=== PATIENT | female | born 1970 | race Caucasian/White ===

== ENCOUNTER → 2017-08-22 | Outpatient (CLI) | payer OTHER, SELFPAY ==
[~2017-08-22] MED LIST: ACET500C PO; ADVAIR INH; LEVO125T PO; MOTR200T4 PO
[2017-08-22 10:29] LABS: ANION GAP 7 MEQ/L (8-16); BLOOD UREA NITROGEN 11 MG/DL (7-18); CALCIUM LEVEL 8.8 MG/DL (8.5-10.1); CARBON DIOXIDE LEVEL 27 MEQ/L (21-32); CHLORIDE LEVEL 105 MEQ/L (98-107); CHOLESTEROL LEVEL 205 MG/DL (<200); FREE T4 1.11 NG/DL (0.76-1.46); GLOMERULAR FILTRATION RATE > 60.0 (>58); GLUCOSE, FASTING 93 MG/DL (70-105); POTASSIUM SERUM 3.7 MEQ/L (3.5-5.1); SODIUM LEVEL 139 MEQ/L (136-145); TRIGLYCERIDES LEVEL 130 MG/DL (<150)
== END ==
LOC: M LABDRAW1 09:08
PROVIDERS: ATTEND Physician Assistant Medical
DX: E03.9 Hypothyroidism, unspecified (principal); E78.5 Hyperlipidemia, unspecified; Z00.00 Encounter for general adult medical examination without abnormal findings

== ENCOUNTER → 2017-10-02 | Outpatient (REF) | payer OTHER | LOC: M LAB REF 12:21 | DX: J02.9 Acute pharyngitis, unspecified (principal) | CPT/HCPCS: 87081 ==

== ENCOUNTER 2018-04-26 17:41 | Emergency (ER) | payer OTHER ==
[2018-04-26] MEDS: RABIES VACCINE HUMAN 2.5 INTERNATIONAL UNITS/ML VIAL (90675) IM (18:15)
[2018-04-26] MEDS: RABIES IMMUNE GLOBULIN 1500 INTERNATIONAL UNITS/10 ML VIAL (90375) IM (19:21)
== END 2018-04-26 20:06 | disposition home or self-care (01) ==
LOC: M ED 17:41
DX: Z20.3 Contact with and (suspected) exposure to rabies (principal); I49.3 Ventricular premature depolarization; E07.9 Disorder of thyroid, unspecified; Z87.19 Personal history of other diseases of the digestive system; Z88.2 Allergy status to sulfonamides; Z88.8 Allergy status to other drugs, medicaments and biological substances; Z79.899 Other long term (current) drug therapy
CPT/HCPCS: 90675

== ENCOUNTER 2018-04-29 11:24 | Emergency (ER) | payer BC, OTHER ==
[2018-04-29] MEDS: RABIES VACCINE HUMAN 2.5 INTERNATIONAL UNITS/ML VIAL (90675) IM (12:09)
== END 2018-04-29 12:18 | disposition home or self-care (01) ==
LOC: M ED 11:24
DX: Z20.3 Contact with and (suspected) exposure to rabies (principal); Z23 Encounter for immunization; Z79.890 Hormone replacement therapy; Z88.1 Allergy status to other antibiotic agents; Z88.2 Allergy status to sulfonamides; Z88.8 Allergy status to other drugs, medicaments and biological substances
CPT/HCPCS: 90675

== ENCOUNTER 2018-05-03 17:12 | Emergency (ER) | payer OTHER, BC ==
[2018-05-03] MEDS: RABIES VACCINE HUMAN 2.5 INTERNATIONAL UNITS/ML VIAL (90675) IM (17:38)
== END 2018-05-03 18:01 | disposition home or self-care (01) ==
LOC: M ED 17:12
DX: Z20.3 Contact with and (suspected) exposure to rabies (principal); Z23 Encounter for immunization; G43.909 Migraine, unspecified, not intractable, without status migrainosus; E07.9 Disorder of thyroid, unspecified; Z86.79 Personal history of other diseases of the circulatory system; Z79.899 Other long term (current) drug therapy; Z88.8 Allergy status to other drugs, medicaments and biological substances; Z88.2 Allergy status to sulfonamides
CPT/HCPCS: 90675

== ENCOUNTER 2018-05-10 16:11 | Emergency (ER) | payer BC, OTHER ==
[2018-05-10] MEDS: RABIES VACCINE HUMAN 2.5 INTERNATIONAL UNITS/ML VIAL (90675) IM (16:45)
== END 2018-05-10 17:12 | disposition home or self-care (01) ==
LOC: M ED 16:11
DX: Z20.3 Contact with and (suspected) exposure to rabies (principal); Z23 Encounter for immunization
CPT/HCPCS: 90675

== ENCOUNTER 2019-10-26 07:09 | Emergency (ER) | payer BC, OTHER ==
[~2019-10-26] VITALS: Ht 157.5 cm; Wt 73.7 kg
[~2019-10-26 07:09] MED LIST changes: +METO1TAB87
[2019-10-26] MEDS ORDERED: cefTRIAXone SOD 250 MG VIAL (J0696) IM ONE (07:45)
[2019-10-26] MEDS ORDERED: LIDOCAINE 1% SDV 5 ML VIAL DILUENT ONE (07:45)
[2019-10-26] MEDS ORDERED: AZITHROMYCIN 250 MG TAB PO ONE (07:45)
[2019-10-26] MEDS ORDERED: ZOFR4TAB16 PO (08:58)
[2019-10-26] MEDS ORDERED: ONDANSETRON 4 MG ORAL DISINTEGRATING TAB (Q0162 PER 1MG) As Ordered ONE (08:58)
[2019-10-26] MEDS ORDERED: ONDANSETRON 4 MG TAB (S0181) PO ONE (09:00)
--- NOTE | 2019-10-26 09:20 | REP ---
LEFT KNEE, COMPLETE: 10/26/2019. Clinical history: Trauma, patient fell. Cannot extend her knee. Findings: No prior study. Five views show medial and lateral compartments without joint space narrowing, loose body or osteochondral lesion. No spurs at joint margins. Patellofemoral joint shows no joint space narrowing or subluxation of the patella. However, there is a suprapatellar effusion on the lateral view. No visible fracture, avulsion, loose body or osteochondral lesion. Impression: 1. Suprapatellar joint effusion, otherwise negative left knee series for any acute bony finding. Electronically Signed by Kvng Herman MD 10/26/2019 08:17 P
[2019-10-26 09:26] VITALS: BP 117/71
[2019-10-26 09:52] LABS: CHLAMYDIA DNA AMPLIFICATION NEGATIVE (NEGATIVE); GC DNA AMPLIFICATION NEGATIVE (NEGATIVE)
[2019-10-27 11:23] LABS: HEPATITIS B SURFACE ANTIBODY POSITIVE (POSITIVE); HEPATITIS B SURFACE ANTIGEN NEGATIVE (NEGATIVE); HEPATITIS C VIRUS ABY INDEX < 0.0 INDEX (<0.8); HIV 1&2 SCREEN CENTAUR NEGATIVE (NEGATIVE)
== END 2019-10-26 09:32 | disposition home or self-care (01) ==
LOC: M ED 07:09
DX: Z11.3 Encounter for screening for infections with a predominantly sexual mode of transmission (principal); S89.92XA Unspecified injury of left lower leg, initial encounter; W00.0XXA Fall on same level due to ice and snow, initial encounter; Y93.23 Activity, snow (alpine) (downhill) skiing, snowboarding, sledding, tobogganing and snow tubing; M25.462 Effusion, left knee; E03.9 Hypothyroidism, unspecified; Z86.79 Personal history of other diseases of the circulatory system; Z91.048 Other nonmedicinal substance allergy status; Z88.2 Allergy status to sulfonamides; Z79.890 Hormone replacement therapy; Z79.899 Other long term (current) drug therapy
CPT/HCPCS: 73564; 86706; 86780; 86803; 87210; 87340; 87389; 87661; 96372; 99284; J0696

== ENCOUNTER → 2019-11-19 | Outpatient (REF) | payer OTHER ==
[~2019-11-19] MED LIST changes: +ZOFR4TAB16 PO
[2019-11-19 10:41] LABS: BASO % 0.6 % (0.0-1.0); EOS # 0.1 10^3/uL (0.0-0.5); EOS % 2.3 % (0.0-3.0); HEMATOCRIT 40.1 % (36.0-47.0); HEMOGLOBIN 13.8 g/dl (12.0-15.5); LYMPH # 1.9 10^3/uL (1.5-5.0); LYMPH % 39.5 % (24.0-44.0); MEAN CORPUSCULAR HEMOGLOBIN 32.5 pg (27.0-33.0); MEAN CORPUSCULAR HGB CONC 34.4 g/dl (32.0-36.5); MEAN CORPUSCULAR VOLUME 94.4 fl (80.0-96.0); MONO # 0.4 10^3/uL (0.0-0.8); MONO % 7.6 % (0.0-5.0); NEUTROPHILS # 2.4 10^3/uL (1.5-8.5); NEUTROPHILS % 49.4 % (36.0-66.0); PLATELET COUNT, AUTOMATED 299 10^3/uL (150-450); RED BLOOD COUNT 4.25 10^6/uL (4.00-5.40); WHITE BLOOD COUNT 4.8 10^3/uL (4.0-10.0)
[2019-11-19 10:55] LABS: ALT/SGPT 19 U/L (12-78); BILIRUBIN,TOTAL 0.4 MG/DL (0.2-1.0); BLOOD UREA NITROGEN 14 MG/DL (7-18); CARBON DIOXIDE LEVEL 30 MEQ/L (21-32); CHLORIDE LEVEL 107 MEQ/L (98-107); CHOLESTEROL LEVEL 241 MG/DL (<200); CHOLESTEROL RISK RATIO 4.381 (<5); CREATININE FOR GFR 0.81 MG/DL (0.55-1.30); FREE T4 1.05 NG/DL (0.76-1.46); GLOMERULAR FILTRATION RATE > 60.0 (>58); GLUCOSE, FASTING 91 MG/DL (70-100); HDL CHOLESTEROL 55 MG/DL (>40); LDL CHOLESTEROL 161 MG/DL (<100); NON-HDL-C 186 MG/DL; POTASSIUM SERUM 4.5 MEQ/L (3.5-5.1); SODIUM LEVEL 142 MEQ/L (136-145); TOTAL PROTEIN 7.1 GM/DL (6.4-8.2); TRIGLYCERIDES LEVEL 126 MG/DL (<150)
== END ==
LOC: M LABDRAW1 09:48
PROVIDERS: ATTEND Physician Assistant
DX: Z13.220 Encounter for screening for lipoid disorders (principal); K21.9 Gastro-esophageal reflux disease without esophagitis; E03.9 Hypothyroidism, unspecified

== ENCOUNTER → 2020-06-24 | Outpatient (REF) | payer OTHER ==
[2020-06-24 13:16] LABS: ALBUMIN 4.1 GM/DL (3.2-5.2); BILIRUBIN,DIRECT 0.1 MG/DL (0.0-0.2); BILIRUBIN,TOTAL 0.6 MG/DL (0.2-1.0); FREE T4 0.94 NG/DL (0.76-1.46); THYROID STIMULATING HORMONE 2.05 uIU/ML (0.358-3.740); TOTAL PROTEIN 7.3 GM/DL (6.4-8.2)
== END ==
LOC: M LABDRWAD 12:13
PROVIDERS: ATTEND Physician Assistant
DX: E03.9 Hypothyroidism, unspecified (principal); E78.2 Mixed hyperlipidemia

== ENCOUNTER → 2020-08-10 | Outpatient (REF) | payer OTHER ==
[2020-08-10 13:08] LABS: ALT/SGPT 21 U/L (12-78); BILIRUBIN,TOTAL 0.4 MG/DL (0.2-1.0); BLOOD UREA NITROGEN 16 MG/DL (7-18); CALCIUM LEVEL 9.1 MG/DL (8.5-10.1); CARBON DIOXIDE LEVEL 27 MEQ/L (21-32); CHLORIDE LEVEL 106 MEQ/L (98-107); CHOLESTEROL LEVEL 179 MG/DL (<200); CHOLESTEROL RISK RATIO 3.086 (<5); CREATININE FOR GFR 0.71 MG/DL (0.55-1.30); GLOMERULAR FILTRATION RATE > 60.0 (>58); GLUCOSE, FASTING 89 MG/DL (70-100); HDL CHOLESTEROL 58 MG/DL (>40); LDL CHOLESTEROL 99 MG/DL (<100); NON-HDL-C 121 MG/DL; POTASSIUM SERUM 4.5 MEQ/L (3.5-5.1); SODIUM LEVEL 140 MEQ/L (136-145); TOTAL PROTEIN 7.4 GM/DL (6.4-8.2); TRIGLYCERIDES LEVEL 110 MG/DL (<150)
== END ==
LOC: M LABDRWAD 12:07
PROVIDERS: ATTEND Physician Assistant
DX: E78.2 Mixed hyperlipidemia (principal)

== ENCOUNTER → 2020-12-23 | Outpatient (REF) | payer OTHER | LOC: M LAB REF 16:35 | PROVIDERS: ATTEND Family Medicine | DX: G43.009 Migraine without aura, not intractable, without status migrainosus (principal) ==

== ENCOUNTER → 2021-02-02 | Outpatient (REF) | payer OTHER ==
[2021-02-02 12:39] LABS: BASO % 0.8 % (0.0-1.0); EOS # 0.1 10^3/uL (0.0-0.5); HEMATOCRIT 40.7 % (36.0-47.0); LYMPH % 41.8 % (24.0-44.0); MEAN CORPUSCULAR HEMOGLOBIN 31.9 pg (27.0-33.0); MEAN CORPUSCULAR HGB CONC 34.4 g/dl (32.0-36.5); MEAN CORPUSCULAR VOLUME 92.7 fl (80.0-96.0); MONO # 0.5 10^3/uL (0.0-0.8); MONO % 9.6 % (2.0-8.0); NEUTROPHILS # 2.2 10^3/uL (1.5-8.5); NEUTROPHILS % 45.6 % (36.0-66.0); PLATELET COUNT, AUTOMATED 268 10^3/uL (150-450); RED BLOOD COUNT 4.39 10^6/uL (4.00-5.40); WHITE BLOOD COUNT 4.9 10^3/uL (4.0-10.0)
[2021-02-02 13:18] LABS: ALT/SGPT 24 U/L (12-78); BILIRUBIN,TOTAL 0.4 MG/DL (0.2-1.0); BLOOD UREA NITROGEN 17 MG/DL (7-18); CALCIUM LEVEL 9.3 MG/DL (8.5-10.1); CARBON DIOXIDE LEVEL 28 MEQ/L (21-32); CHLORIDE LEVEL 108 MEQ/L (98-107); CHOLESTEROL LEVEL 203 MG/DL (<200); FREE T4 0.97 NG/DL (0.76-1.46); GLOMERULAR FILTRATION RATE > 60.0 (>58); GLUCOSE, FASTING 89 MG/DL (70-100); HDL CHOLESTEROL 59 MG/DL (>40); LDL CHOLESTEROL 119 MG/DL (<100); NON-HDL-C 144 MG/DL; POTASSIUM SERUM 4.5 MEQ/L (3.5-5.1); SODIUM LEVEL 141 MEQ/L (136-145); TOTAL 25(OH) VITAMIN D 79.8 NG/ML (30.0-100.0); TOTAL PROTEIN 7.2 GM/DL (6.4-8.2); TRIGLYCERIDES LEVEL 123 MG/DL (<150)
== END ==
LOC: M LABDRWAD 12:20
PROVIDERS: ATTEND Physician Assistant
DX: E78.2 Mixed hyperlipidemia (principal); K21.9 Gastro-esophageal reflux disease without esophagitis; M54.5 Low back pain; R53.83 Other fatigue

== ENCOUNTER → 2021-02-14 | Outpatient (CLI) | payer BC, OTHER ==
--- NOTE | 2021-02-14 16:40 | REP ---
INDICATION: LOW BACK PAIN COMPARISON: 12/25/2017 TECHNIQUE: AP, lateral, flexion/extension, bilateral oblique, and coned-down views. FINDINGS: Mild stable chronic levoconvex scoliosis centered at approximately L1-2 again noted in the frontal projection. The vertebral bodies including transverse process and spinous processes are intact and normal. There is no evidence for acute fracture / compression injury or subluxation. No evidence for spondylolysis or spondylolisthesis. No significant degenerative change is noted. IMPRESSION: Mild stable chronic levoconvex scoliosis <Electronically signed by Gene Benítez > 02/14/21 1349
== END ==
LOC: M ADAMS 15:56
PROVIDERS: ATTEND Family Medicine
DX: M54.5 Low back pain (principal)

== ENCOUNTER → 2021-06-24 | Outpatient (REF) | payer BC ==
[2021-06-24 12:36] LABS: ALBUMIN 3.8 GM/DL (3.2-5.2); ALT/SGPT 25 U/L (12-78); BILIRUBIN,TOTAL 0.4 MG/DL (0.2-1.0); BLOOD UREA NITROGEN 14 MG/DL (7-18); CALCIUM LEVEL 9.2 MG/DL (8.5-10.1); CARBON DIOXIDE LEVEL 26 MEQ/L (21-32); CHLORIDE LEVEL 110 MEQ/L (98-107); CHOLESTEROL LEVEL 174 MG/DL (<200); CREATININE FOR GFR 0.76 MG/DL (0.55-1.30); GLOMERULAR FILTRATION RATE > 60.0 (>58); GLUCOSE, FASTING 91 MG/DL (70-100); HDL CHOLESTEROL 60 MG/DL (>40); LDL CHOLESTEROL 100 MG/DL (<100); NON-HDL-C 114 MG/DL; POTASSIUM SERUM 4.6 MEQ/L (3.5-5.1); SODIUM LEVEL 143 MEQ/L (136-145); TOTAL PROTEIN 7.2 GM/DL (6.4-8.2); TRIGLYCERIDES LEVEL 72 MG/DL (<150)
== END ==
LOC: M LABDRWAD 11:27
PROVIDERS: ATTEND Physician Assistant
DX: E78.2 Mixed hyperlipidemia (principal)

== ENCOUNTER → 2022-02-17 | Outpatient (REF) | payer OTHER, BC | LOC: M LAB REF 10:04 | PROVIDERS: ATTEND Physician Assistant | DX: R19.7 Diarrhea, unspecified (principal) ==

== ENCOUNTER → 2022-02-20 | Outpatient (CLI) | payer BC, OTHER ==
[2022-02-20 17:46] LABS: HEMOGLOBIN 13.6 g/dl (12.0-15.5); MEAN CORPUSCULAR HEMOGLOBIN 31.7 pg (27.0-33.0); MEAN CORPUSCULAR HGB CONC 34.9 g/dl (32.0-36.5); MEAN CORPUSCULAR VOLUME 90.9 fl (80.0-96.0); PLATELET COUNT, AUTOMATED 260 10^3/uL (150-450); RED BLOOD COUNT 4.29 10^6/uL (4.00-5.40); WHITE BLOOD COUNT 7.1 10^3/uL (4.0-10.0)
[2022-02-20 18:20] LABS: ALBUMIN 3.9 GM/DL (3.2-5.2); ALT/SGPT 20 U/L (12-78); BILIRUBIN,DIRECT 0.1 MG/DL (0.0-0.2); BILIRUBIN,TOTAL 0.5 MG/DL (0.2-1.0); BLOOD UREA NITROGEN 13 MG/DL (7-18); CALCIUM LEVEL 9.5 MG/DL (8.5-10.1); CARBON DIOXIDE LEVEL 29 MEQ/L (21-32); CHLORIDE LEVEL 110 MEQ/L (98-107); CREATININE FOR GFR 0.71 MG/DL (0.55-1.30); FREE T4 1.01 NG/DL (0.76-1.46); GLOMERULAR FILTRATION RATE > 60.0 (>51); GLUCOSE, FASTING 83 MG/DL (70-100); LIPASE 240 U/L (73-393); POTASSIUM SERUM 4.4 MEQ/L (3.5-5.1); SODIUM LEVEL 143 MEQ/L (136-145); TOTAL PROTEIN 7.4 GM/DL (6.4-8.2)
[2022-02-20 19:28] LABS: ATYPICAL LYMPH 8 % (0-5); EOSINOPHILS 2 % (0-3); LYMPHOCYTES 26 % (16-44); MONOCYTES 4 % (0-5); NEUTROPHILS 58 % (28-66); PLATELET ESTIMATE NORMAL (NORMAL)
== END ==
LOC: M PLALAB 15:51
PROVIDERS: ATTEND Physician Assistant
DX: R19.7 Diarrhea, unspecified (principal)

== ENCOUNTER → 2022-03-07 | Outpatient (CLI) | payer BC, OTHER ==
[2022-03-07 13:23] LABS: BASO % 0.7 % (0.0-1.0); EOS # 0.1 10^3/uL (0.0-0.5); EOS % 2.3 % (0.0-3.0); HEMOGLOBIN 13.7 g/dl (12.0-15.5); LYMPH % 35.1 % (24.0-44.0); MEAN CORPUSCULAR HGB CONC 33.4 g/dl (32.0-36.5); MEAN CORPUSCULAR VOLUME 92.8 fl (80.0-96.0); MONO # 0.5 10^3/uL (0.0-0.8); MONO % 8.7 % (2.0-8.0); NEUTROPHILS # 3.1 10^3/uL (1.5-8.5); PLATELET COUNT, AUTOMATED 322 10^3/uL (150-450); RED BLOOD COUNT 4.42 10^6/uL (4.00-5.40); WHITE BLOOD COUNT 5.8 10^3/uL (4.0-10.0)
== END ==
LOC: M PLALAB 08:56
PROVIDERS: ATTEND Physician Assistant
DX: D72.89 Other specified disorders of white blood cells (principal)

== ENCOUNTER → 2022-05-26 | Outpatient (CLI) | payer BC, OTHER ==
[2022-05-26 16:04] LABS: BASO % 0.5 % (0.0-1.0); EOS # 0.1 10^3/uL (0.0-0.5); EOS % 1.3 % (0.0-3.0); HEMATOCRIT 39.5 % (36.0-47.0); HEMOGLOBIN 13.4 g/dl (12.0-15.5); LYMPH # 2.3 10^3/uL (1.5-5.0); LYMPH % 37.1 % (24.0-44.0); MEAN CORPUSCULAR HEMOGLOBIN 31.7 pg (27.0-33.0); MEAN CORPUSCULAR HGB CONC 33.9 g/dl (32.0-36.5); MEAN CORPUSCULAR VOLUME 93.4 fl (80.0-96.0); MONO # 0.5 10^3/uL (0.0-0.8); MONO % 8.1 % (2.0-8.0); NEUTROPHILS # 3.3 10^3/uL (1.5-8.5); NEUTROPHILS % 52.7 % (36.0-66.0); PLATELET COUNT, AUTOMATED 282 10^3/uL (150-450); RED BLOOD COUNT 4.23 10^6/uL (4.00-5.40); WHITE BLOOD COUNT 6.3 10^3/uL (4.0-10.0)
[2022-05-26 16:30] LABS: ALBUMIN 3.8 GM/DL (3.2-5.2); ALT/SGPT 26 U/L (12-78); BILIRUBIN,TOTAL 0.3 MG/DL (0.2-1.0); BLOOD UREA NITROGEN 13 MG/DL (7-18); CALCIUM LEVEL 9.3 MG/DL (8.5-10.1); CARBON DIOXIDE LEVEL 27 MEQ/L (21-32); CHLORIDE LEVEL 107 MEQ/L (98-107); CREATININE FOR GFR 0.68 MG/DL (0.55-1.30); FREE T4 0.98 NG/DL (0.76-1.46); GLOMERULAR FILTRATION RATE > 60.0 (>51); GLUCOSE, FASTING 90 MG/DL (70-100); POTASSIUM SERUM 4.3 MEQ/L (3.5-5.1); SODIUM LEVEL 138 MEQ/L (136-145); THYROID STIMULATING HORMONE 0.349 uIU/ML (0.358-3.740); TOTAL PROTEIN 6.9 GM/DL (6.4-8.2)
== END ==
LOC: M PLALAB 12:40
PROVIDERS: ATTEND Physician Assistant
DX: E03.9 Hypothyroidism, unspecified (principal)

== ENCOUNTER → 2022-07-21 | Outpatient (CLI) | payer BC, OTHER ==
[2022-07-21 13:06] LABS: BASO # 0.1 10^3/uL (0.0-0.2); BASO % 0.8 % (0.0-1.0); EOS # 0.1 10^3/uL (0.0-0.5); EOS % 1.4 % (0.0-3.0); HEMATOCRIT 41.6 % (36.0-47.0); HEMOGLOBIN 13.6 g/dl (12.0-15.5); LYMPH # 2.3 10^3/uL (1.5-5.0); LYMPH % 34.9 % (24.0-44.0); MEAN CORPUSCULAR HGB CONC 32.7 g/dl (32.0-36.5); MEAN CORPUSCULAR VOLUME 94.8 fl (80.0-96.0); MONO # 0.6 10^3/uL (0.0-0.8); MONO % 9.6 % (2.0-8.0); NEUTROPHILS # 3.5 10^3/uL (1.5-8.5); NEUTROPHILS % 52.8 % (36.0-66.0); PLATELET COUNT, AUTOMATED 287 10^3/uL (150-450); RED BLOOD COUNT 4.39 10^6/uL (4.00-5.40); WHITE BLOOD COUNT 6.6 10^3/uL (4.0-10.0)
[2022-07-21 14:08] LABS: FREE T3 2.6 PG/ML (2.2-4.0); FREE T4 1.02 NG/DL (0.76-1.46); THYROID STIMULATING HORMONE 0.605 uIU/ML (0.358-3.740)
[2022-07-21 14:41] LABS: ESTRADIOL 85.9 PG/ML; LUTEINIZING HORMONE 4.2 mIU/mL; PROGESTERONE 14.37 NG/ML
[2022-07-21 14:43] LABS: FOLLICLE STIMULATING HORMONE 7.6 mIU/mL
[2022-07-22 23:09] LABS: TESTOSTERONE FREE (DIRECT) 0.5 pg/mL (0.0-4.2)
== END ==
LOC: M WUC 09:12
PROVIDERS: ATTEND Student in an Organized Health Care Education/Training Program
DX: R89.1 Abnormal level of hormones in specimens from other organs, systems and tissues (principal); N95.1 Menopausal and female climacteric states; E34.9 Endocrine disorder, unspecified; E07.89 Other specified disorders of thyroid

== ENCOUNTER → 2022-07-27 | Outpatient (CLI) | payer BC, OTHER ==
[2022-07-28 17:08] LABS: HERPES ZOSTER, VARICELLA IgG 406 index (Immune >165); HERPES ZOSTER, VARICELLA IgM <0.91 index (0.00-0.90); RUBEOLA IgG ANTIBODY 38.7 AU/mL (Immune >16.4)
== END ==
LOC: M PLALAB 08:39
PROVIDERS: ATTEND Physician Assistant
DX: Z01.84 Encounter for antibody response examination (principal)

== ENCOUNTER → 2023-11-22 | Outpatient (CLI) | payer OTHER ==
[2023-11-22 11:07] LABS: BASO # 0.1 10^3/uL (0.0-0.2); BASO % 0.8 % (0.0-1.0); EOS # 0.1 10^3/uL (0.0-0.5); EOS % 2.2 % (0.0-3.0); HEMATOCRIT 41.5 % (36.0-47.0); HEMOGLOBIN 14.1 g/dl (12.0-15.5); LYMPH # 2.3 10^3/uL (1.5-5.0); LYMPH % 36.3 % (24.0-44.0); MEAN CORPUSCULAR HEMOGLOBIN 31.3 pg (27.0-33.0); MONO # 0.5 10^3/uL (0.0-0.8); NEUTROPHILS # 3.3 10^3/uL (1.5-8.5); NEUTROPHILS % 52.5 % (36.0-66.0); PLATELET COUNT, AUTOMATED 258 10^3/uL (150-450); RED BLOOD COUNT 4.51 10^6/uL (4.00-5.40); WHITE BLOOD COUNT 6.2 10^3/uL (4.0-10.0)
[2023-11-22 11:49] LABS: THYROID STIMULATING HORMONE 1.161 uIU/ML (0.55-4.78); TOTAL 25(OH) VITAMIN D 39.2 NG/ML (20.0-100.0)
[2023-11-22 11:50] LABS: FREE T4 1.18 NG/DL (0.89-1.76)
[2023-11-22 11:52] LABS: VITAMIN B12 LEVEL 451 PG/ML (211-911)
[2023-11-22 11:54] LABS: ALBUMIN 3.9 G/DL (3.2-5.2); ALKALINE PHOSPHATASE 59 U/L (46-116); ALT/SGPT 21 U/L (7.0-40); AST/SGOT 16 U/L (<34); BILIRUBIN,TOTAL 0.5 MG/DL (0.3-1.2); BLOOD UREA NITROGEN 13 MG/DL (9-23); CALCIUM LEVEL 9.3 MG/DL (8.5-10.1); CARBON DIOXIDE LEVEL 29 MMOL/L (20-31); CHLORIDE LEVEL 106 MMOL/L (98-107); CHOLESTEROL LEVEL 178 MG/DL (<200); CHOLESTEROL RISK RATIO 2.66 (<5); GLOMERULAR FILTRATION RATE > 60.0 (>51); GLUCOSE, FASTING 85 MG/DL (60-100); HDL CHOLESTEROL 66.7 MG/DL (>40); LDL CHOLESTEROL 93.1 MG/DL (<100); NON-HDL-C 111.3 MG/DL; SODIUM LEVEL 139 MMOL/L (136-145); TOTAL PROTEIN 6.8 G/DL (5.7-8.2); TRIGLYCERIDES LEVEL 91 MG/DL (<150)
[2023-11-22 11:55] LABS: FOLATE 17.11 NG/ML (>5.4)
== END ==
LOC: M PLALAB 07:40
PROVIDERS: ATTEND Physician Assistant
DX: E03.9 Hypothyroidism, unspecified (principal); R53.83 Other fatigue

== ENCOUNTER 2024-03-24 05:47 | Emergency (ER) | payer OTHER ==
[~2024-03-24] VITALS: Ht 157.5 cm; Wt 72.4 kg
[2024-03-24] MEDS: NS 1,000 ML IV ONE (06:35)
[2024-03-24 06:44] LABS: HEMATOCRIT 42.4 % (36.0-47.0); HEMOGLOBIN 14.9 g/dl (12.0-15.5); MEAN CORPUSCULAR HEMOGLOBIN 32.3 pg (27.0-33.0); MEAN CORPUSCULAR HGB CONC 35.1 g/dl (32.0-36.5); MEAN CORPUSCULAR VOLUME 91.8 fl (80.0-96.0); PLATELET COUNT, AUTOMATED 304 10^3/uL (150-450); RED BLOOD COUNT 4.62 10^6/uL (4.00-5.40); WHITE BLOOD COUNT 5.6 10^3/uL (4.0-10.0)
[2024-03-24] MEDS ORDERED: MORPHINE 4 MG/ML 1ML VIAL IV ONE (06:50)
[2024-03-24 07:12] LABS: ALBUMIN 4.2 G/DL (3.2-5.2); ALKALINE PHOSPHATASE 58 U/L (46-116); ALT/SGPT 23 U/L (7.0-40); AST/SGOT 45 U/L (<34); BILIRUBIN,DIRECT < 0.1 MG/DL (<0.4); BILIRUBIN,TOTAL 0.5 MG/DL (0.3-1.2); BLOOD UREA NITROGEN 12 MG/DL (9-23); CALCIUM LEVEL 8.8 MG/DL (8.5-10.1); CARBON DIOXIDE LEVEL 26 MMOL/L (20-31); CHLORIDE LEVEL 106 MMOL/L (98-107); CREATININE FOR GFR 0.61 MG/DL (0.55-1.30); GLOMERULAR FILTRATION RATE > 60.0 (>51); GLUCOSE, FASTING 97 MG/DL (60-100); LIPASE 56 U/L (12-53); POTASSIUM SERUM 5.2 MMOL/L (3.5-5.1); SODIUM LEVEL 137 MMOL/L (136-145); TOTAL PROTEIN 7.5 G/DL (5.7-8.2)
[2024-03-24 07:21] LABS: ATYPICAL LYMPH 8 % (0-5); BASOPHILS 1 % (0-1); LYMPHOCYTES 43 % (16-44); MONOCYTES 3 % (0-5); NEUTROPHILS 45 % (28-66)
[2024-03-24 07:22] LABS: PLATELET ESTIMATE NORMAL (NORMAL)
[2024-03-24] MEDS ORDERED: ISOVUE-370 76% 100ML VIAL As Ordered ONE (07:28)
[2024-03-24] MEDS: KETOROLAC 30 MG/ML 1ML VIAL IV ONE (09:58)
[2024-03-24] MEDS ORDERED: KETO10TAB PO (10:45)
[2024-03-24 11:03] VITALS: BP 112/73; TEMP 97.5; O2SAT 99
== END 2024-03-24 11:08 | disposition home or self-care (01) ==
LOC: M ED 05:47
DX: R10.31 Right lower quadrant pain (principal); R00.1 Bradycardia, unspecified; Z88.2 Allergy status to sulfonamides; Z88.8 Allergy status to other drugs, medicaments and biological substances; Z79.899 Other long term (current) drug therapy
CPT/HCPCS: 74177; 76830; 76856; 80048; 80076; 81001; 83690; 85025; 93005; 93041; 96361; 96374; 99284; J1885; Q9967

== ENCOUNTER → 2024-10-08 | Outpatient (CLI) | payer OTHER ==
[~2024-10-08] MED LIST changes: +KETO10TAB PO
[2024-10-08 10:50] LABS: BILIRUBIN,DIRECT 0.1 MG/DL (<0.4); BILIRUBIN,TOTAL 0.5 MG/DL (0.3-1.2); CHOLESTEROL RISK RATIO 3.08 (<5); HDL CHOLESTEROL 67.4 MG/DL (>40); LDL CHOLESTEROL 116.2 MG/DL (<100); NON-HDL-C 140.6 MG/DL; PERCENT SATURATION 36.5 % (13.2-45.0); TOTAL PROTEIN 7.5 G/DL (5.7-8.2)
[2024-10-08 10:51] LABS: ESTRADIOL 64.1 PG/ML; FREE T4 1.37 NG/DL (0.89-1.76); LUTEINIZING HORMONE 55.4 mIU/ML
[2024-10-08 10:52] LABS: FERRITIN 191.9 NG/ML (7.3-270.7); FREE T3 3.2 PG/ML (2.3-4.2); THYROID STIMULATING HORMONE 1.39 uIU/ML (0.55-4.78)
[2024-10-08 10:57] LABS: PROGESTERONE 58.3 NG/ML
[2024-10-09 09:22] LABS: DEHYDROEPIANDROSTERONE SULFATE 63 mcg/dL (5-167); SEX HORMONE BINDING GLOBULIN 43 nmol/L (17-124)
== END ==
LOC: M WUC 08:20
PROVIDERS: ATTEND Registered Nurse
DX: Z79.890 Hormone replacement therapy (principal); E55.9 Vitamin D deficiency, unspecified; E34.8 Other specified endocrine disorders; R53.83 Other fatigue; M95.9 Acquired deformity of musculoskeletal system, unspecified; N95.1 Menopausal and female climacteric states

== ENCOUNTER 2025-04-07 09:24 | Observation (INO) | payer OTHER ==
[~2025-04-07] VITALS: Ht 157.5 cm; Wt 71.2 kg
[~2025-04-07 09:24] MED LIST changes: +ATIV1TAB10 PO; +CRES40TA PO; +ESTR25TD TD; +METO25TA4 PO; +ONDA-83 PO; +PROG1CAP9 PO; +SEMA1PEN4 SQ; +SYNT100T PO; +VALT1TAB PO; +testosterone cream TOP
[2025-04-07] MEDS ORDERED: ROCURONIUM BROMIDE 50MG/5ML VIAL As Ordered ONE (10:59)
[2025-04-07] MEDS ORDERED: LIDOCAINE 2% 100 MG/5 ML SDV (FOR ANES.) As Ordered ONE (10:59)
[2025-04-07] MEDS ORDERED: SUGAMMADEX SODIUM 500 MG/5 ML VIAL As Ordered ONE (10:59)
[2025-04-07] MEDS ORDERED: ONDANSETRON 4MG 2ML VIAL As Ordered ONE (10:59)
[2025-04-07] MEDS ORDERED: dexAMETHasone 4 MG/ML 1 ML VIAL As Ordered ONE (10:59)
[2025-04-07] MEDS ORDERED: MIDAZOLAM INJ 2 MG/2 ML VIAL As Ordered ONE (11:06)
[2025-04-07] MEDS ORDERED: LISD30CA PO (11:12)
[2025-04-07] MEDS ORDERED: HOME MED LIST COMPLETE! XX SCH (11:15)
[2025-04-07] MEDS: ceFAZolin SOD 2 GM IV ONCE IV ONE (13:21)
[2025-04-07] MEDS: HEPARIN SOD 5000 UNITS/ML 1 ML VIAL/SYRINGE SQ ONE (13:30)
[2025-04-07] MEDS ORDERED: ACETAMINOPHEN 1000MG/100ML IV BAG As Ordered ONE (13:37)
[2025-04-07] MEDS: LIDOCAINE 2% W/EPINEPHrine 20 ML VIAL **PRES FREE As Ordered ONE (13:50)
[2025-04-07] MEDS ORDERED: GLYCOPYRROLATE INJ 0.2 MG/ML 2 ML VIAL As Ordered ONE (14:05)
[2025-04-07] MEDS: GENTAMICIN SULF 80 MG/2 ML VIAL As Ordered ONE (14:58)
[2025-04-07] MEDS ORDERED: HYDROmorphone HCL 2 MG/ML 1 ML VIAL As Ordered ONE (16:05)
[2025-04-07] MEDS ORDERED: ACETAMINOPHEN 325 MG TAB PO PRN (18:20)
[2025-04-07] MEDS ORDERED: ONDANSETRON 4MG 2ML VIAL IV PRN (18:20)
[2025-04-07] MEDS ORDERED: LORazepam 0.5 MG TAB PO PRN (18:20)
[2025-04-07] MEDS: LR 1,000 ML IV SCH ×2 (18:20→20:29)
[2025-04-07] MEDS ORDERED: MORPHINE 2 MG/ML 1 ML VIAL IV PRN (18:25)
[2025-04-07] MEDS ORDERED: PILL CUTTER 1 EACH XX PRN (18:35)
[2025-04-07] MEDS: ONDANSETRON 4MG TAB PO PRN (18:38)
[2025-04-07] MEDS: ONDANSETRON 4MG 2ML VIAL IV PRN (18:46)
[2025-04-07] MEDS: PROMETHAZINE 25MG/ML 1ML VIAL IV PRN (18:55)
[2025-04-07 19:50] VITALS: BP 110/79; TEMP 97.5; O2SAT 90
[2025-04-07] MEDS: METOPROLOL TART 12.5 MG PER 1/2 TAB PO SCH (20:29)
[2025-04-07 20:30] VITALS: BP 110/75; TEMP 97.9; O2SAT 95
[2025-04-07] MEDS: ROSUVASTATIN 10 MG TAB PO SCH (20:30)
[2025-04-07] MEDS: PERCOCET 5MG/325MG TAB PO PRN (20:31)
[2025-04-07 21:00] VITALS: BP 110/73; TEMP 97.9; O2SAT 95
[2025-04-07] MEDS: ceFAZolin SODIUM 2 GM in DEXTROSE 5% (D5W) ADV/MINI-BAG 50 ML IV SCH (21:53)
[2025-04-07 22:00] VITALS: BP 110/72; TEMP 98.1; O2SAT 95
[2025-04-07] MEDS: traMADol 50 MG TAB PO PRN (23:26)
[2025-04-08] VITALS: BP 109/71; TEMP 98; O2SAT 95
[2025-04-08 01:00] VITALS: BP 99/57; TEMP 98.6; O2SAT 96
[2025-04-08] MEDS: LEVOTHYROXINE 100 MCG TABLET (0.1 MG) PO SCH (05:44)
[2025-04-08 08:00] VITALS: BP 110/63; TEMP 98.6
[2025-04-08 08:10] VITALS: BP 111/67
[2025-04-08] MEDS: METOPROLOL TART 25 MG TABLET PO SCH (08:10)
[2025-04-08] MEDS ORDERED: TRAM50TA2 PO (09:29)
== END 2025-04-08 11:55 | disposition home or self-care (01) ==
LOC: M SDC 09:24 → M RR INP 09:25 → M MS5PR 20:09
PROVIDERS: ADMIT Plastic Surgery Surgery of the Hand; ATTEND Plastic Surgery Surgery of the Hand
DX: N62 Hypertrophy of breast (principal); E88.1 Lipodystrophy, not elsewhere classified; Z88.2 Allergy status to sulfonamides; Z88.8 Allergy status to other drugs, medicaments and biological substances; E78.5 Hyperlipidemia, unspecified; K21.9 Gastro-esophageal reflux disease without esophagitis; R51.9 Headache, unspecified; Z79.899 Other long term (current) drug therapy
CPT/HCPCS: 15877; 19318; 88300; 88305; 96365; 96366; J0131; J0665; J0666; J0690; J1100; J1171; J1580; J1596; J2250; J2405; J2550; J3010